=== PATIENT | male | born 1995 | race Two or more races ===

== ENCOUNTER → 2020-03-02 | Emergency (ER) | payer OTHER ==
[~2020-03-02] VITALS: Ht 180.3 cm; Wt 61.2 kg
[~2020-03-02] MED LIST: LIDOCAINE 1% HCL (LOCAL ANESTH.) INJ 20ML MDV IJ ONE
[2020-03-02 18:00] VITALS: BP 142/83
== END | disposition home or self-care (01) ==
LOC: ER 17:45
DX: S60.011A Contusion of right thumb without damage to nail, initial encounter (principal); Z88.0 Allergy status to penicillin; W23.0XXA Caught, crushed, jammed, or pinched between moving objects, initial encounter; Y93.89 Activity, other specified; Y92.89 Other specified places as the place of occurrence of the external cause; Y99.8 Other external cause status
CPT/HCPCS: 73130